=== PATIENT | male | born 1985 | race Caucasian/White ===

== ENCOUNTER 2017-01-22 10:41 | Emergency (ER) | payer OTHER ==
[~2017-01-22] VITALS: Ht 170.2 cm; Wt 87.6 kg
[2017-01-22 10:42] VITALS: BP 137/90; PULSE 71; TEMP 36.4; O2SAT 95; Ht 170.2 cm; Wt 87.6 kg
--- NOTE | 2017-01-22 11:17 | EMERGENCY ROOM VISIT NOTE ---
History First contact with patient: 10:48 Chief Complaint: SINUS CONGESTION/PRESSURE Stated Complaint: SINUS PROBLEMS X 2 YEARS/CONGESTION Nursing Triage Summary: pt reports since feb 2015 he has congestion in nose. pt also states reports he snores really loud. History of Present Illness The patient is a 31 year old male who presents to the Emergency Room via private vehicle with complaints of "sinus problems 2 years, congestion". The patient states that he recently moved here from the [facility] [place] in 2014. He states that since that time he's been experiencing sinus congestion, particularly in the nose. He states that he tries [id number] nasal sprays , which helps temporarily alleviates this but it has been persistent. He denies any fevers or chills. He denies any pertinent past medical history. He does state that while in the [place], he was using eyedrops that were prescribed for his eyes, but notes that there was a mistake and that this was a medication only for the ears. This time he notes no discomfort of the eyes, but does note a yellowish hue to the medial canthus of the eyes bilaterally. Review of Systems A complete 6-point Review of Systems was discussed with the patient, with pertinent positives and negatives listed in the History of Present Illness. All remaining Review of Systems questions can be considered negative unless otherwise specified. Past Medical/Surgical History No pertinent. Family History No pertinent. Social History Smoking Status: Never Smoker Pt. lives and is employed locally. Current/Historical Medications No Active Prescriptions or Reported Meds Physical Exam Vital Signs Date Time Temp Pulse Resp B/P (MAP) Pulse Ox O2 Delivery O2 Flow Rate FiO2 01/22/17 10:42 36.4 71 18 137/90 95 Room Air Physical Exam VITAL SIGNS - Vital signs and nursing notes were reviewed. Afebrile, hypertensive 137/90, non-tachycardic and saturating normal 95%. GENERAL -31-year-old male appearing his stated age who is in no acute distress. Communicates well with provider and answers questions appropriately. SKIN - Without rashes. No petechial rashes. HEAD - NC/AT. EYES - PERRL with EOMI bilaterally. Sclera anicteric. Bulbar conjunctival injection medially, with pterygium bilaterally. EARS - No deformities of external structures noted on gross examination bilaterally. No pain elicited with palpation of the tragus bilaterally. External auditory canals without discharge or otorrhea. Tympanic membranes pearly hitchcock without retraction or bulging. No fluid or purulent material visualized behind the TM. Handle of malleus, umbo, cone of light, pars tensa/ flaccid all easily visualized. NOSE - Midline and without cyanosis. No epistaxis or purulent drainage noted. Septum midline without deviation or septal hematoma noted. MOUTH/OROPHARYNX - Without perioral cyanosis. Buccal mucosa pink and moist and without leukoplakia. Tongue midline with equal elevation of palate bilaterally. No tonsillar hypertrophy, erythema, or exudates noted. Fair dentition noted. NECK - Neck with FROM. Supple to palpation. No lymphadenopathy noted. No nuchal rigidity. LUNGS - Chest wall symmetric without accessory muscle use, intercostals retractions, or central cyanosis. Normal vesicular breath sounds CTA B/L. No wheezes, rales, or rhonchi appreciated. CARDIAC - RRR with S1/S2. No murmur, rubs, or gallops appreciated. Medical Decision & Procedures Medical Decision Patient was seen and evaluated as above. After obtaining a thorough history and physical examination it is most likely the patient is experiencing allergic rhinitis. Symptoms began when he moved here from the [facility]. He has tried sprays, and is been taking Claritin and similar medications only as needed. He states that he will only take one pill when his symptoms are worse. He does not have a family doctor currently. He notes that he snores in his sleep. There is been no fever or chills at this time I will recommend that he tries a 1 month course of Claritin, as well as saline nasal spray. I do not believe that any antibiotic is necessary, as his symptoms have been consistent with that of environmental allergies. He is afebrile. Otherwise examination is unremarkable. 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 He is to follow-up with his family doctor, of which he notes he does not have, but does feel comfortable calling the back of his insurance card to obtain such. It appears that he was unaware of how to go upon this. If he worsens in any way he is to return. He was educated upon worrisome symptoms which to return, had questions prior to discharge, and was discharged home in good condition. In evaluation treatment this patient following differential diagnoses were entertained: Sinusitis, allergic rhinitis, meningitis, encephalitis, among others. Impression Primary Impression: Allergic rhinitis Departure Information Dispostion Home / Self-Care Condition GOOD Prescriptions No Active Prescriptions or Reported Meds Referrals No Doctor, Assigned (PCP) Patient Instructions My [facility] Additional Instructions You were seen in the emergency Department for nasal congestion. At this time I recommend Claritin, which is loratadine 10 mg daily for the next 30 days. This can be purchased [id number]. If you have difficulty finding this, please approach the pharmacy counter. I also recommend saline nasal spray. This is one spray in each nostril in the morning and evening. This is also [id number]. Please follow-up with family doctor. I recommend calling the back of your insurance card to discuss with your insurance which providers in the area participate. Please follow-up regarding elevated blood pressure today. Please follow-up the eyes, and the nose congestion as we discussed. Please return to the emergency department with any new/concerning symptoms. If you have any questions please call [phone]
== END 2017-01-22 11:19 | disposition home or self-care (01) ==
LOC: C.EDB 10:42 → C.EDD 11:19
DX: J30.9 Allergic rhinitis, unspecified (principal)